=== PATIENT | male | born 1995 | race Caucasian/White ===

== ENCOUNTER → 2021-07-17 10:48 | Outpatient (BNVA) | payer SELFPAY | PROVIDERS: PCP Nurse Practitioner; Visit Provider Nurse Practitioner | DX: R19.7 Diarrhea, unspecified (principal) | CPT/HCPCS: 80053; 83630; 85025; 87506 ==

== ENCOUNTER → 2023-06-18 08:26 | Outpatient (BNVA) | payer SELFPAY | PROVIDERS: PCP Nurse Practitioner; Visit Provider Nurse Practitioner | DX: R73.9 Hyperglycemia, unspecified (principal) | CPT/HCPCS: 80053; 80061; 81000; 82306; 82607; 83036; 84443; 85025; 85651; 86140 ==